=== PATIENT | female | born 1940 | race Caucasian/White ===

== ENCOUNTER 2016-11-24 11:58 | Observation (INO) | payer OTHER ==
[~2016-11-24] VITALS: Ht 139.7 cm; Wt 67.3 kg
[~2016-11-24 11:58] MED LIST: ASPI-496 PO
[2016-11-24 12:52] LABS: HEMOGLOBIN 13.9 g/dL (11.7-16.4)
[2016-11-24] MEDS ORDERED: ASPIRIN 81 MG TABLET CHEW PO ONE (13:00)
[2016-11-24] MEDS ORDERED: SODIUM CHLORIDE FLUSH 10ML SYR IVF ONE (13:00)
[2016-11-24] MEDS ORDERED: ASPIRIN 81 MG TABLET CHEW ONE (13:02)
[2016-11-24 13:03] LABS: BLOOD UREA NITROGEN 19 mg/dL (7-18)
[2016-11-24] MEDS ORDERED: SODIUM CHLORIDE FLUSH 10ML SYR IVF PRN (14:00)
[2016-11-24] MEDS ORDERED: NS + 20MEQ KCL 1,000 ML IV SCH (14:26)
[2016-11-24] MEDS ORDERED: ENOXAPARIN 40 MG/0.4 ML SQ SCH (14:30)
[2016-11-24] MEDS ORDERED: HYDROcodone/APAP 5/325 TABLET PO PRN (14:30)
[2016-11-24] MEDS ORDERED: POLYETHYLENE GLYCOL 17 GM PACKET PO PRN (14:30)
[2016-11-24] MEDS ORDERED: BISACODYL 10 MG SUPP PR PRN (14:30)
[2016-11-24] MEDS ORDERED: NITROGLYCERIN 0.4 MG BOTTLE (25 TABS) SL PRN (14:30)
[2016-11-24] MEDS ORDERED: LABETALOL 5MG/ML, 20ML IV PRN (14:30)
[2016-11-24] MEDS ORDERED: ONDANSETRON 2MG/ML, 2ML IVP PRN (14:30)
[2016-11-24] MEDS ORDERED: DOCUSATE 100 MG CAPSULE PO PRN (14:30)
[2016-11-24] MEDS ORDERED: ACETAMINOPHEN 325 MG TABLET PO PRN (14:30)
[2016-11-24] MEDS ORDERED: MORPHINE SULFATE 4 MG/ML, 1ML IVPush PRN (14:30)
[2016-11-24 15:58] LABS: PATH.CAST-FLAG NOT PRESENT; SPERM-FLAG NOT PRESENT; SRC-FLAG NOT PRESENT; XTAL-FLAG NOT PRESENT; YLC-FLAG NOT PRESENT
[2016-11-24 16:29] LABS: IS PT STATUS REG ER OR PRE ER? YES
[2016-11-24] MEDS ORDERED: NS + 20MEQ KCL 1,000 ML IV ONE (17:29)
[2016-11-24 21:18] VITALS: BP 157/80
[2016-11-24 23:00] LABS: IS PT STATUS REG ER OR PRE ER? NO
[2016-11-25 01:56] VITALS: BP 139/71
[2016-11-25 04:56] LABS: HEMOGLOBIN 13.2 g/dL (11.7-16.4)
[2016-11-25 05:06] LABS: BLOOD UREA NITROGEN 14 mg/dL (7-18)
[2016-11-25] MEDS ORDERED: ASPIRIN 325 MG TABLET EC PO SCH (06:00)
[2016-11-25 07:16] VITALS: BP 157/84
[2016-11-25] MEDS ORDERED: REGADENOSON 0.4 MG/5 ML SYRINGE ONE (08:59)
[2016-11-25 14:03] VITALS: BP 135/77
== END 2016-11-25 14:41 | disposition home or self-care (01) ==
LOC: ED 13:25 → INTOOBSV 13:50 → EDIP 13:50 → 5SO 19:59
PROVIDERS: ADMIT Family Medicine; ATTEND Family Medicine
DX: R07.89 Other chest pain (principal); I10 Essential (primary) hypertension; D72.829 Elevated white blood cell count, unspecified; E44.0 Moderate protein-calorie malnutrition; R79.89 Other specified abnormal findings of blood chemistry; Z87.891 Personal history of nicotine dependence; Z95.0 Presence of cardiac pacemaker
CPT/HCPCS: 36415; 71010; 78452; 80048; 81001; 82040; 83880; 84439; 84443; 84484; 85025; 85610; 85730; 87086; 93005; 93017; 96360; 96361; 99285; A9502; C9898; G0378; J2785; J3480